=== PATIENT | male | born 1950 | race Caucasian/White ===

== ENCOUNTER 2024-03-14 06:27 | Day surgery (SDC) | payer MEDICARE, SELFPAY ==
[2024-03-09 13:31] VITALS: BMI 28.4
[2024-03-09 13:55] LABS: Hematocrit 41.1 % (39.0-52.0); Mean Corp Hgb Conc. 34.1 g/dL (33.0-37.0); Mean Corpuscular Hgb 31.2 pg (27.0-31.0); Mean Corpuscular Volume 91.5 fL (80.0-94.0); Mean Platelet Volume 9.6 fL (7.4-10.4); Platelet Count 183 10^3/uL (130-400); Red Blood Cell Count 4.49 10^6/uL (4.70-6.10); Red Cell Dist. Width 12.2 % (11.5-14.5); White Blood Cell Count 5.3 10^3/uL (4.8-10.8)
[2024-03-09 13:57] LABS: APTT 24.5 Sec (23.4-35.0); INR 1.06; PT 13.6 Sec (11.4-14.6)
[2024-03-14] VITALS (19 sets, daily range): BP systolic 113–159; BP diastolic 58–98; BMI 28.4
[2024-03-14] MEDS: NORMOSOL-R 1000 IV (11:21)
[2024-03-14] MEDS: CYSVIEW KIT 100 MG INTRAVES (11:35)
[2024-03-14] MEDS: SYRINGE NON-PUMP 50 MG IRRIG ×2 (14:09→14:10)
[2024-03-14] MEDS: SYRINGE NON-PUMP 50 ML IRRIG ×2 (14:09→14:10)
[2024-03-14] MEDS: VALIUM INJECTION 5 MG IV (15:22)
[2024-03-14] MEDS: DILAUDID 0.25 MG IV (16:03)
[2024-03-14] MEDS: Pyridium 200 MG PO (16:03)
--- NOTE | 2024-03-14 18:02 | PTCARENOTE ---
Pt came up to floor from PACU around 1745. Pt ambulated as a self to the bed. Pt came up on a CBI. CBI running, urine is clear with slight punch color tinge. Pt is alert and oriented x3. Denies any pain. Tolerating his diet well. Lungs clear. HR
regular. Skin is intact. No edema. Pt is able to turn and reposition self in bed. Family is at the bedside. All needs are meet at this time. call cha is within reach.
[2024-03-15 03:15] VITALS: BP 115/60
--- NOTE | 2024-03-15 06:18 | PTCARENOTE ---
Carey cath discontinued as per order.
--- NOTE | 2024-03-15 06:44 | W.PN.URO.CBU ---
Today's Communication / Plan
-
home after voids
Assessment / Plan
-
stable
Diagnosis
-
Date of Service: March 15, 2024
-
Patient Diagnosis: s/p TURBT + P 03/14
Post Op Day:
1
Subjective
-
Carey just removed
comfortable
Objective
-
Vital Signs
Temp Pulse Resp BP Pulse Ox
98.2 F 55 18 115/60 96
03/15/24 03:15 03/15/24 03:15 03/15/24 03:15 03/15/24 03:15 03/15/24 03:15
Intake and Output
03/13/24 03/14/24 03/15/24
06:59 06:59 06:59
Intake Total 790 / 790
Output Total 7150 / 7150
Balance -6360 / -6360
Intake:
Oral fluids 240 / 240
IV fluids (Total) 550 / 550
Normosol 550 / 550
Output:
True Urine Output from CBI 7150 / 7150
Laboratory Results
03/09/24 13:26
Physical Exam
-
General - well developed, well nourished, no acute distress
Abdomen - soft, non-tender, positive bowel sounds, no distention
[2024-03-15 08:00] VITALS: BP 106/63
[2024-03-15] MEDS: TYLENOL 650 MG PO (08:23)
[2024-03-15] MEDS: Pyridium 200 MG PO (08:24)
--- NOTE | 2024-03-15 10:57 | CM ---
Received notification that patient is discharged. Patient confirmed that his will take him home. He expressed no needs. IMM reviewed.
Plan: Case management will continue to follow and assist with discharge planning. Home with .
[2024-03-15 13:17] VITALS: BP 142/79
== END 2024-03-15 15:38 | disposition home or self-care (01) ==
LOC: SDS 06:27
PROVIDERS: ATTENDING PHYSICIAN Specialist; FAMILY PHYSICIAN Family Medicine
DX: C67.8 Malignant neoplasm of overlapping sites of bladder (principal)
CPT/HCPCS: 52240; C9738; 88307; 36415; 85027; 85610; 85730; 93005; A9589; J9201